=== PATIENT | male | born 1930 | race Hispanic/Latino ===

== ENCOUNTER 2020-02-28 16:03 | Emergency (ER) | payer MEDICARE ==
[2020-02-28 17:36] LABS: BASOPHILS % (AUTO) 0.5 % (0.0-5.0); EOSINOPHILS % (AUTO) 1.4 % (0.0-8.0); HEMATOCRIT 38.9 % (42-54); MEAN CORPUSCULAR HEMOGLOBIN 32.8 pg (27.0-33.0); MEAN CORPUSCULAR HGB CONC 34.2 g/dL (32.0-36.0); MONOCYTES % (AUTO) 9.8 % (3.0-13.0); NEUTROPHILS % (AUTO) 61.8 % (40.0-77.0); PLATELET COUNT (AUTO) 197 K/uL (130-400); RED BLOOD CELL COUNT(AUTO) 4.05 MIL/uL (4.50-6.20); RED CELL DISTRIBUTION WIDTH 12.4 % (11.0-15.5)
[2020-02-28 17:42] LABS: APPEARANCE,URINE Clear (CLEAR); BILIRUBIN,URINE Negative (NEGATIVE); COLOR,URINE Yellow (YELLOW); GLUCOSE, URINE (UA) Negative (NEGATIVE); KETONES,URINE Negative (NEGATIVE); LEUKOCYTE ESTERASE ,URINE Negative (NEGATIVE); NITRATE,URINE Negative (NEGATIVE); OCCULT BLOOD,URINE Negative (NEGATIVE); PH,URINE 7.5 (5.0-8.0); PROTEIN,URINE Negative (NEGATIVE)
[2020-02-28 17:45] LABS: INR 0.96 (0.85-1.15); PARTIAL THROMBOPLASTIN TIME 28.2 SEC (26.3-35.5); PROTHROMBIN TIME 10.4 SEC (9.6-11.6)
[2020-02-28 17:49] LABS: B-TYPE NATRIURETIC PEPTIDE 54 pg/mL (0-100)
== END 2020-02-28 18:15 | disposition home or self-care (01) ==
LOC: EDH 16:03
DX: I10 Essential (primary) hypertension (principal); M25.551 Pain in right hip
CPT/HCPCS: 36415; 71045; 81003; 82550; 83880; 84484; 85025; 85610; 85730; 93005

== ENCOUNTER → 2020-04-22 | Outpatient (CLI) | payer MEDICARE ==
[~2020-04-22] MED LIST: IOHEXOL-350 50ML VIAL IV ONE
== END | disposition home or self-care (01) ==
LOC: RAH 08:30
PROVIDERS: ATTEND Family Medicine
DX: N40.0 Benign prostatic hyperplasia without lower urinary tract symptoms (principal); M43.17 Spondylolisthesis, lumbosacral region; M47.817 Spondylosis without myelopathy or radiculopathy, lumbosacral region
CPT/HCPCS: 74178; Q9967

== ENCOUNTER 2020-06-20 11:13 | Observation (INO) | payer MEDICARE ==
[2020-06-14 12:39] LABS: BASOPHILS % (AUTO) 0.6 % (0.0-5.0); EOSINOPHILS % (AUTO) 2.1 % (0.0-8.0); HEMATOCRIT 39.9 % (42-54); LYMPHOCYTES % (AUTO) 25.7 % (21.0-51.0); MEAN CORPUSCULAR HEMOGLOBIN 32.8 pg (27.0-33.0); MEAN CORPUSCULAR HGB CONC 33.3 g/dL (32.0-36.0); MEAN CORPUSCULAR VOLUME 98.5 fL (79-99); MONOCYTES % (AUTO) 10.6 % (3.0-13.0); NEUTROPHILS % (AUTO) 60.4 % (40.0-77.0); PLATELET COUNT (AUTO) 208 K/uL (130-400); RED BLOOD CELL COUNT(AUTO) 4.05 MIL/uL (4.50-6.20); RED CELL DISTRIBUTION WIDTH 12.2 % (11.0-15.5); WHITE BLOOD COUNT (AUTO) 6.6 K/uL (4.8-10.8)
[2020-06-14 12:43] LABS: CREATININE 0.6 mg/dL (0.5-1.5); POTASSIUM 4.5 mmol/L (3.5-5.1)
[2020-06-14 12:47] LABS: INR 0.99 (0.85-1.15); PARTIAL THROMBOPLASTIN TIME 27.7 SEC (26.3-35.5); PROTHROMBIN TIME 10.7 SEC (9.6-11.6)
[2020-06-14 12:48] LABS: APPEARANCE,URINE Clear (CLEAR); BILIRUBIN,URINE Negative (NEGATIVE); COLOR,URINE Yellow (YELLOW); GLUCOSE, URINE (UA) Negative (NEGATIVE); KETONES,URINE Negative (NEGATIVE); LEUKOCYTE ESTERASE ,URINE Negative (NEGATIVE); NITRATE,URINE Negative (NEGATIVE); OCCULT BLOOD,URINE Negative (NEGATIVE); PROTEIN,URINE Negative (NEGATIVE)
[2020-06-19 09:27] VITALS: BP 138/60
--- NOTE | 2020-06-19 10:12 | NUR ---
ABNORMAL EKG REPORTED EKG TO DR OBANDO, NO NEW ORDERS RECEIVED. MAY PROCEED WITH SCHEDULED PROCEDURE.
[2020-06-19] MEDS: CEFTRIAXONE SODIUM 1 GM IVP SCH (10:15)
[2020-06-19] MEDS: GENTAMICIN SULFATE 320 MG in SODIUM CHLORIDE 0.9% 100 ML IV SCH (10:15)
[~2020-06-20] VITALS: Ht 160 cm; Wt 65.8 kg
[2020-06-20] VITALS (22 sets, daily range): BP systolic 133–167; BP diastolic 60–78
[2020-06-20] MEDS: GENTAMICIN SULFATE 320 MG in SODIUM CHLORIDE 0.9% 100 ML IV SCH ×2 (10:15→19:31)
[2020-06-20] MEDS: CEFTRIAXONE SODIUM 1 GM IVP SCH ×2 (10:15→16:20)
[~2020-06-20 11:13] MED LIST changes: +AMLO-257 PO; -IOHEXOL-350 50ML VIAL IV ONE; +LACTULOSE PO; +LOSA100T58 PO; +TAMS-1 PO; +[UNRECOGNIZED DRUG - OTHER] PO
[2020-06-20] MEDS ORDERED: LACTATED RINGERS 1000ML 1,000 ML IV ONE (11:46)
[2020-06-20] MEDS ORDERED: GLUC-145 PO (13:23)
[2020-06-20] MEDS ORDERED: LEVAQUIN PO (13:23)
[2020-06-20] MEDS ORDERED: ONDANSETRON HCL 4 MG/2 ML VIAL ONE (16:20)
[2020-06-20] MEDS ORDERED: SUCCINYLCHOLINE 200MG/10ML SYR ONE (16:20)
[2020-06-20] MEDS ORDERED: PROPOFOL 10 MG/ML 20ML VIAL IV ONE (16:20)
[2020-06-20] MEDS ORDERED: FENTANYL CITRATE PF 50 MCG/1 ML 2ML VIAL ONE (16:20)
[2020-06-20] MEDS ORDERED: DEXAMETHASONE SOD PHOSPHATE 10MG/ML 1ML VIAL ONE (16:20)
[2020-06-20] MEDS ORDERED: ROCURONIUM 10MG/1ML SYR 10 MG/ML ML ONE (16:21)
[2020-06-20] MEDS ORDERED: EPHEDRINE SULFATE 50 MG/ML AMPULE ONE (16:36)
[2020-06-20] MEDS ORDERED: GLYCOPYRROLATE 1 MG/5 ML SYRINGE ONE (17:22)
[2020-06-20] MEDS ORDERED: NEOSTIGMINE 5MG/5ML SYR IV ONE (17:23)
[2020-06-20] MEDS ORDERED: SODIUM CHLORIDE 0.9% 1000ML 1,000 ML IV SCH (19:45)
[2020-06-20] MEDS ORDERED: OPIUM/BELLADONNA ALKALOIDS 1 EACH SUPP.RECT RC PRN (19:45)
[2020-06-20] MEDS ORDERED: HYDROCODONE/ACETAMINOPHEN 7.5/325 MG TAB PO PRN (19:45)
[2020-06-20] MEDS ORDERED: DOCUSATE SODIUM 100 MG CAP PO ONE (19:50)
[2020-06-20] MEDS: DOCUSATE SODIUM 100 MG CAP PO SCH (21:00)
[2020-06-21 00:18] VITALS: BP 141/67
[2020-06-21 04:00] VITALS: BP 118/67
[2020-06-21] MEDS ORDERED: AMLODIPINE BESYLATE 5 MG TAB ONE (04:16)
[2020-06-21] MEDS ORDERED: LOSARTAN 100 MG TABLET ONE (04:16)
--- NOTE | 2020-06-21 04:44 | NUR ---
patient alert and oriented times 3. continous bladder irrigation throughout the night with normal saline. he has no abdominal discomfort or pain. iv levaquin will be given in the am. his blood pressure medications were given. patient will be discharged home today with a villalta catheter. he will follow up with doctor roblero on wednesday for villalta removal. no issues.
--- NOTE | 2020-06-21 06:29 | NUR ---
patient's total output INCLUDING THE NORMAL SALINE is 6,300 ml. normal saline given was 2,450 ml total urine output is 3,850 ml for the whole 12 hours
[2020-06-21] MEDS ORDERED: LEVOFLOXACIN 500 MG/D5W 100 ML 100 ML IV SCH (08:00)
[2020-06-21] MEDS: DOCUSATE SODIUM 100 MG CAP PO SCH (08:54)
[2020-06-21 08:58] VITALS: BP 143/77
--- NOTE | 2020-06-21 11:37 | NUR ---
[id number] patient signed NICOLE Letter, I faxed NICOLE Letter to [phone] and paced in chart under consent tab.
[2020-06-21 13:02] VITALS: BP 143/77
--- NOTE | 2020-06-21 15:05 | NUR ---
dr. osbaldo hirsch called dr. agosto office to speak with dr. agosto about pt's urine output color. wanted to confirm with physician if its okay to d/c patient with redish urine output..waiting for call back
--- NOTE | 2020-06-21 15:51 | NUR ---
dr. roblero spoke with dr. roblero. as per phsycian, okay to d/c patient despite some blood in urine. he stated no issues with discharging patient.
[2020-06-21 16:35] VITALS: BP 133/61
--- NOTE | 2020-06-21 16:40 | NUR ---
discharge. went over discharge instructions with patient and patient's son...capped patient's villalta from [facility] bag..explained to patient al medications to take. patient aware of follow up appointment with dr. roblero for wednesday..answered all questions and concerns..after explained dc instructions, sludge filtration attendant escorted patient to exit doors via wheelchair.
[2020-06-21] MEDS ORDERED: AMLODIPINE BESYLATE 5 MG TAB PO SCH (21:00)
[2020-06-21] MEDS ORDERED: LOSARTAN 100 MG TABLET PO SCH (21:00)
== END 2020-06-21 16:30 | disposition home or self-care (01) ==
LOC: DAH 11:13 → 3DH 11:14 → DAH 11:14
PROVIDERS: ADMIT Urology; ATTEND Urology
DX: N40.1 Benign prostatic hyperplasia with lower urinary tract symptoms (principal); Z20.828 Contact with and (suspected) exposure to other viral communicable diseases; I10 Essential (primary) hypertension
CPT/HCPCS: 36415; 52648; 71045; 80048; 81003; 85025; 85610; 85730; 87088; 93005; 96361 ×2; 96365; 96366 ×2; 96367; A4215; A4216; A4221; A4222; A4223 ×3; A4354; A4358; A4600; A4606; A4663; A4930; C1758; C9803; G0378 ×14; J0330; J0696; J1100; J1580; J1956; J2405; J2704; J2710; J3010; J3490 ×2; J7120 ×2; U0003